=== PATIENT | male | born 1975 | race Caucasian/White ===

== ENCOUNTER 2017-05-14 23:50 | Emergency (ER) | payer OTHER ==
[2017-05-15 00:06] VITALS: BP 118/70; PULSE 66; TEMP 98.2; BMI 23.5
[2017-05-15] MEDS ORDERED: MAG HYDROX/AL HYDROX/SIMETH 30 ML UNIT-DOSE CUP PO ONE (00:36)
[2017-05-15] MEDS ORDERED: PANTOPRAZOLE SODIUM 40 MG in SODIUM CHLORIDE 100 ML IVPB ONE (00:36)
[2017-05-15] MEDS ORDERED: FAMOTIDINE 20 MG/50 ML IVPB 50 ML IVPB ONE ×2 (00:36→00:46)
[2017-05-15 00:43] LABS: BASOPHIL 0.7 % (0-2.0); EOSINOPHIL 1.3 % (0-4.5); MCH 30.1 pg (25.7-33.7); MCHC 33.3 g/dl (32.0-35.9); MEAN CELL VOLUME 90.6 fl (80-96); MEAN PLT VOLUME 7.6 fl (7.5-11.1); NEUTROPHILS 58.9 % (42.8-82.8); PLATELET COUNT 215 K/MM3 (134-434); RDW 12.6 % (11.9-15.9); WHITE BLOOD COUNT 6.1 K/mm3 (4.0-10.0)
[2017-05-15] MEDS ORDERED: ONDANSETRON 4 MG/2 ML VIAL ONE (00:45)
[2017-05-15] MEDS ORDERED: PANTOPRAZOLE SODIUM 40 MG VIAL ONE (00:46)
[2017-05-15] MEDS ORDERED: ONDANSETRON 4 MG/2 ML VIAL IVPUSH ONE (00:53)
[2017-05-15 01:05] LABS: ALBUMIN 4.2 g/dl (3.4-5.0); ALK PHOS 86 U/L (45-117); ANION GAP 9 (8-16); BILIRUBIN,TOTAL 0.3 mg/dL (0.2-1.0); CALCIUM 8.7 mg/dL (8.5-10.1); CO2 28 mmol/L (21-32); COCKROFT - GAULT 101.84; CREATININE 0.9 mg/dL (0.7-1.3); GLUCOSE,RANDOM 134 mg/dL (74-106); SGOT/AST 24 U/L (15-37); SGPT/ALT 50 U/L (12-78); TOT PROT 7.2 g/dl (6.4-8.2)
--- NOTE | 2017-05-15 01:32 | PDOC ---
History of Present Illness - General Chief Complaint: Pain, Acute Stated Complaint: NAUSEA/VOMITING Time Seen by Provider: 05/15/17 00:23 - History of Present Illness Initial Comments: 05/15/17 01:32 CHIEF COMPLAINT: abd pain HISTORY OF PRESENT ILLNESS: 42 yo M with no PMH presents to ED with abdominal pain x 2 days and chronic back pain x 2 years. Patient reports that he has had on and off abdominal pain that worsens after eating for the last couple months, but today was the first time he vomited. He reports one episode of vomiting "but it was a lot." He reports the pain to his stomach is "right around the middle." He states he ate chicken and rice today. No recent travel or sick contacts. PAST MEDICAL HISTORY: Denies past medical history FAMILY HISTORY: Denies SOCIAL HISTORY: Denies tobacco, alcohol, illicit drug use. SURGICAL HISTORY: Denies ALLERGIES: No known drug allergies REVIEW OF SYSTEMS General/Constitutional: Denies fever or chills. Denies weakness, weight change. HEENT: Denies change in vision. Denies ear pain or discharge. Denies sore throat. Cardiovascular: Denies chest pain or shortness of breath. Respiratory: Denies cough, wheezing, or hemoptysis. Gastrointestinal: Vomiting x 1 episode. Abdominal pain. Denies diarrhea or constipation. Denies rectal bleeding. Genitourinary: Denies dysuria, frequency, or change in urination. Musculoskeletal: Denies joint or muscle swelling or pain. Denies neck or back pain. Skin and breasts: Denies rash or easy bruising. Neurologic: Denies headache, vertigo, loss of consciousness, or loss of sensation. PHYSICAL EXAM General Appearance: Well-appearing, appropriately dressed. No apparent distress , no intoxication. HEENT: EOMI, PERRLA, normal ENT inspection, normal voice, TMs normal, pharynx normal. No conjunctival pallor. No photophobia, scleral icterus. Respiratory/Chest: Lungs CTAB. Cardiovascular: RRR. S1, S2. Gastrointestinal/Abdominal: Mild epigastric tenderness. Normal bowel sounds. Abdomen soft, non-distended. No tenderness or rebound tenderness. No organomegaly, pulsatile mass, guarding, hernia, hepatomegaly, splenomegaly. Musculoskeletal/Extremities: Normal inspection. FROM of all extremities, normal capillary refill. Pelvis Stable. No CVA tenderness. No tenderness to extremities, pedal edema, swelling, erythema or deformity. Integumentary: Appropriate color, dry, warm. 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 Fully oriented, alert. Appropriate mood/affect. Motor strength 5/5. No appreciable EOM palsy, facial droop or sensory deficit. 05/15/17 01:32 Past History - Past Medical History Allergies/Adverse Reactions: Allergies Allergy/AdvReac Type Severity Reaction Status Date / Time No Known Allergies Allergy Verified 05/14/17 23:58 Home Medications: Ambulatory Orders Pantoprazole Sodium [Protonix] 40 mg PO DAILY #14 tablet. 05/15/17 - Psycho/Social/Smoking Cessation Hx Suicidal Ideation: No Smoking History: Never smoked *Physical Exam - Vital Signs Last Vital Signs Temp Pulse Resp BP Pulse Ox 98.2 F 66 16 118/70 100 05/14/17 23:58 05/14/17 23:58 05/14/17 23:58 05/14/17 23:58 05/14/17 23:58 ED Treatment Course - LABORATORY CBC & Chemistry Diagram: 05/15/17 00:21 05/15/17 00:21 - ADDITIONAL ORDERS Additional order review: Laboratory Results 05/15/17 00:21 Sodium 141 Potassium 4.0 Chloride 104 Carbon Dioxide 28 Anion Gap 9 BUN 18 Creatinine 0.9 Creat Clearance w eGFR > 60 Random Glucose 134 H Calcium 8.7 Total Bilirubin 0.3 AST 24 ALT 50 Alkaline Phosphatase 86 Total Protein 7.2 Albumin 4.2 Lipase 135 05/15/17 00:21 RBC 4.77 MCV 90.6 MCHC 33.3 RDW 12.6 MPV 7.6 Neutrophils % 58.9 Lymphocytes % 31.1 Monocytes % 8.0 Eosinophils % 1.3 Basophils % 0.7 - Medications Given in the ED: ED Medications Discontinued Medications Generic Name Dose Route Start Last Admin Trade Name Freq PRN Reason Stop Dose Admin Pantoprazole Sodium 40 mg/ 100 mls @ 200 mls/hr 05/15/17 00:36 05/15/17 00:53 Sodium Chloride IVPB 05/15/17 01:05 200 mls/hr ONCE ONE Administration Famotidine/Sodium Chloride 50 mls @ 100 mls/hr 05/15/17 00:36 05/15/17 00:53 Pepcid 20 Mg Premixed Ivpb - IVPB 05/15/17 01:05 100 mls/hr ONCE ONE Administration Ondansetron HCl 4 mg 05/15/17 00:53 05/15/17 00:53 Zofran Injection IVPUSH 05/15/17 00:54 4 mg NOW ONE Administration Medical Decision Making - Medical Decision Making 05/15/17 03:27 42 yo M with no PMH presents to ED with abdominal pain x 2 days and chronic back pain x 2 years. -CBc, CMP, lipase -IVF, pepcid, protonix, maalox labs unremarkable patient reassessed, states he is feeling much better and is ready to go home Advised patient to f/u with GI by end of week and of signs and symptoms for return to ER; patient verbalized understanding and agrees to plan 05/15/17 05:32 *DC/Admit/Observation/Transfer Diagnosis at time of Disposition: Abdominal pain Qualifiers: Abdominal location: epigastric Qualified Code(s): R10.13 - Epigastric pain - Discharge Dispostion Disposition: HOME Condition at time of disposition: Stable Admit: No - Prescriptions Prescriptions: Pantoprazole Sodium [Protonix] 40 mg PO DAILY #14 tablet.dr - Referrals Referrals: Javon Eisenberg MD [Staff Physician] - Honorio Shah MD [Staff Physician] - - Patient Instructions Printed Discharge Instructions: DI for Gastroesophageal Reflux Disease (GERD) Additional Instructions: Please take medication as prescribed and follow up with the round kiln drawer by the end of the week. Follow up with orthopedics for further of your chronic back pain. If you experience persistent vomiting, worsening abdominal pain, fever, diarrhea, loss of sensation to your legs, loss of bowel or bladder function ,or any new or worsening symptoms, please return to the ER. Print Language: UZBEK
--- NOTE | 2017-05-15 02:02 | PDOC ---
*Physical Exam - Vital Signs Last Vital Signs Temp Pulse Resp BP Pulse Ox 98.2 F 66 16 118/70 100 05/14/17 23:58 05/14/17 23:58 05/14/17 23:58 05/14/17 23:58 05/14/17 23:58 ED Treatment Course - LABORATORY CBC & Chemistry Diagram: 05/15/17 00:21 05/15/17 00:21 - ADDITIONAL ORDERS Additional order review: Laboratory Results 05/15/17 00:21 Sodium 141 Potassium 4.0 Chloride 104 Carbon Dioxide 28 Anion Gap 9 BUN 18 Creatinine 0.9 Creat Clearance w eGFR > 60 Random Glucose 134 H Calcium 8.7 Total Bilirubin 0.3 AST 24 ALT 50 Alkaline Phosphatase 86 Total Protein 7.2 Albumin 4.2 Lipase 135 05/15/17 00:21 RBC 4.77 MCV 90.6 MCHC 33.3 RDW 12.6 MPV 7.6 Neutrophils % 58.9 Lymphocytes % 31.1 Monocytes % 8.0 Eosinophils % 1.3 Basophils % 0.7 - Medications Given in the ED: ED Medications Discontinued Medications Generic Name Dose Route Start Last Admin Trade Name Darq PRN Reason Stop Dose Admin Pantoprazole Sodium 40 mg/ 100 mls @ 200 mls/hr 05/15/17 00:36 05/15/17 00:53 Sodium Chloride IVPB 05/15/17 01:05 200 mls/hr ONCE ONE Administration Famotidine/Sodium Chloride 50 mls @ 100 mls/hr 05/15/17 00:36 05/15/17 00:53 Pepcid 20 Mg Premixed Ivpb - IVPB 05/15/17 01:05 100 mls/hr ONCE ONE Administration Ondansetron HCl 4 mg 05/15/17 00:53 05/15/17 00:53 Zofran Injection IVPUSH 05/15/17 00:54 4 mg NOW ONE Administration Medical Decision Making - Medical Decision Making 05/15/17 02:01 agree with care from SERVANDO Gongora *DC/Admit/Observation/Transfer Diagnosis at time of Disposition: Abdominal pain - Discharge Dispostion Disposition: HOME Condition at time of disposition: Stable - Prescriptions Prescriptions: Pantoprazole Sodium [Protonix] 40 mg PO DAILY #14 tablet.dr - Referrals Referrals: Javon Eisenberg MD [Staff Physician] - Honorio Shah MD [Staff Physician] - - Patient Instructions Printed Discharge Instructions: DI for Gastroesophageal Reflux Disease (GERD) Additional Instructions: Please take medication as prescribed and follow up with the ordinary seaman by the end of the week. Follow up with orthopedics for further of your chronic back pain. If you experience persistent vomiting, worsening abdominal pain, fever, diarrhea, loss of sensation to your legs, loss of bowel or bladder function ,or any new or worsening symptoms, please return to the ER. Print Language: POLISH
[2017-05-15] MEDS ORDERED: MAG HYDROX/AL HYDROX/SIMETH 30 ML UNIT-DOSE CUP ONE (02:14)
== END 2017-05-15 03:50 | disposition home or self-care (01) ==
LOC: JER 23:50
PROC: 3E033GC Introduction of Other Therapeutic Substance into Peripheral Vein, Percutaneous Approach (ICD-10-PCS; principal; 2017-05-14)
PROC: 3E033GC Introduction of Other Therapeutic Substance into Peripheral Vein, Percutaneous Approach (ICD-10-PCS; 2017-05-14)
PROC: 3E033GC Introduction of Other Therapeutic Substance into Peripheral Vein, Percutaneous Approach (ICD-10-PCS; 2017-05-14)
DX: R10.13 Epigastric pain (principal)
CPT/HCPCS: 36415; 80053; 83690; 85025; 99282-25